=== PATIENT | male | born 1950 | race Caucasian/White ===

== ENCOUNTER 2018-10-09 04:32 | Inpatient (IN) | payer MEDICARE, MEDICAID ==
[2018-10-09 05:23] LABS: HEMATOCRIT 40.3 % (42.0-52.0); HEMOGLOBIN 14.2 g/dl (13.5-17.5); MEAN CORPUSCULAR HEMOGLOBIN 31.4 pg (27.0-33.0); MEAN CORPUSCULAR HGB CONC 35.2 g/dl (32.0-36.5); MEAN CORPUSCULAR VOLUME 89.2 fl (80.0-96.0); PLATELET COUNT, AUTOMATED 234 10^3/uL (150-450); RED BLOOD COUNT 4.52 10^6/uL (4.30-6.10); RED CELL DISTRIBUTION WIDTH 12.3 % (11.5-14.5); WHITE BLOOD COUNT 9.6 10^3/uL (4.0-10.0)
[2018-10-09 05:45] LABS: AMPHETAMINES LEVEL URINE NEGATIVE (NEGATIVE); BARBITURATES URINE NEGATIVE (NEGATIVE); BENZODIAZEPINES URINE NEGATIVE (NEGATIVE); CANNABINOIDS URINE NEGATIVE (NEGATIVE); COCAINE METABOLITE URINE NEGATIVE (NEGATIVE); METHADONE URINE NEGATIVE (NEGATIVE); OPIATES URINE NEGATIVE (NEGATIVE); PHENCYCLIDINE URINE NEGATIVE (NEGATIVE)
[2018-10-09 06:05] LABS: ALBUMIN 3.9 GM/DL (3.2-5.2); ALKALINE PHOSPHATASE 39 U/L (45-117); ALT/SGPT 43 U/L (12-78); ANION GAP 8 MEQ/L (8-16); AST/SGOT 55 U/L (7-37); BILIRUBIN,DIRECT 0.3 MG/DL (0.0-0.2); BILIRUBIN,TOTAL 0.9 MG/DL (0.2-1.0); BLOOD UREA NITROGEN 15 MG/DL (7-18); CALCIUM LEVEL 8.5 MG/DL (8.8-10.2); CARBON DIOXIDE LEVEL 24 MEQ/L (21-32); CHLORIDE LEVEL 96 MEQ/L (98-107); CREATININE FOR GFR 0.87 MG/DL (0.70-1.30); ETHYL ALCOHOL (ETHANOL) < 0.003 % (0.000-0.010); GLOMERULAR FILTRATION RATE > 60.0 (>49); GLUCOSE, FASTING 102 MG/DL (70-100); SALICYLATE LEVEL < 1.7 MG/DL (5.0-30.0); SODIUM LEVEL 128 MEQ/L (136-145); TOTAL PROTEIN 6.9 GM/DL (6.4-8.2)
[2018-10-09 06:06] LABS: ACETAMINOPHEN LEVEL < 2.0 UG/ML (10.0-30.0)
[2018-10-09] MEDS ORDERED: MOM 30ML SUSPENSION UDC PO (06:45)
[2018-10-09] MEDS ORDERED: MAALOX 30 ML SUSP *UDC PO (06:45)
[2018-10-09] MEDS ORDERED: traZODone 50 MG TAB PO (06:45)
[2018-10-09] MEDS ORDERED: ACETAMINOPHEN TAB 650MG DOSE (2X325MG) PO (06:45)
[2018-10-09] MEDS: LORazepam 2 MG/ML VIAL (J2060) IM (08:30)
[2018-10-09] MEDS: diphenhydrAMINE INJ 50MG/ML VIAL (J1200) IM (08:30)
[2018-10-09] MEDS: HALOPERIDOL 5 MG/ML VIAL (J1630) IM (08:31)
[2018-10-09 11:18] LABS: MAGNESIUM LEVEL 2.2 MG/DL (1.8-2.4)
[2018-10-09 11:55] LABS: HEPATITIS B SURFACE ANTIGEN NEGATIVE (NEGATIVE)
[2018-10-09 12:23] LABS: HEPATITIS B CORE ANTIBODY IGM NEGATIVE (NEGATIVE)
[2018-10-09 12:24] LABS: HEPATITIS A ANTIBODY IGM NEGATIVE (NEGATIVE)
[2018-10-09 13:13] LABS: HEPATITIS C VIRUS ABY INDEX 1.8 INDEX (<0.8)
[2018-10-09] MEDS: ASPIRIN 325 MG TAB PO (17:12)
[2018-10-09] MEDS: METOPROLOL TART 25 MG TABLET PO (17:14)
[2018-10-09] MEDS: OLANZapine 5 MG TAB PO (20:44)
[2018-10-09] MEDS: QUEtiapine FUMARATE 100 MG TAB PO (20:45)
[2018-10-10 07:38] LABS: ALBUMIN 3.4 GM/DL (3.2-5.2); ALBUMIN/GLOBULIN RATIO 1.13 (1.00-1.93); ALKALINE PHOSPHATASE 36 U/L (45-117); ALT/SGPT 41 U/L (12-78); ANION GAP 9 MEQ/L (8-16); AST/SGOT 46 U/L (7-37); BILIRUBIN,TOTAL 0.9 MG/DL (0.2-1.0); BLOOD UREA NITROGEN 9 MG/DL (7-18); CALCIUM LEVEL 7.8 MG/DL (8.8-10.2); CARBON DIOXIDE LEVEL 23 MEQ/L (21-32); CHLORIDE LEVEL 93 MEQ/L (98-107); CREATININE FOR GFR 0.73 MG/DL (0.70-1.30); GLOMERULAR FILTRATION RATE > 60.0 (>49); GLUCOSE, FASTING 107 MG/DL (70-100); POTASSIUM SERUM 4.5 MEQ/L (3.5-5.1); SODIUM LEVEL 125 MEQ/L (136-145); TOTAL PROTEIN 6.4 GM/DL (6.4-8.2)
[2018-10-10 07:56] LABS: OSMOLALITY SERUM 257 MOSM/KG (280-301)
[2018-10-10] MEDS: ASPIRIN 325 MG TAB PO (08:06)
[2018-10-10] MEDS: METOPROLOL TART 25 MG TABLET PO (08:06)
[2018-10-10] MEDS: QUEtiapine FUMARATE 100 MG TAB PO ×3 (08:06→21:10)
[2018-10-10 08:38] LABS: KETONE, URINE AUTO RFX NEGATIVE (NEGATIVE); LEUKOCYTE ESTERASE UR AUTO RFX NEGATIVE (NEGATIVE); NITRITE, URINE AUTO RFX NEGATIVE (NEGATIVE); RBC, URINE AUTO RFX 0 /HPF (0-3); SPECIFIC GRAVITY UR AUTO RFX 1.006 (1.002-1.035); SQUAM EPITHELIAL CELL UR AURFX 0 /HPF (0-6); WBC, URINE AUTO RFX 0 /HPF (0-3)
[2018-10-10 08:38] LABS: OSMOLALITY URINE 253 MOSM/KG (500-800)
[2018-10-10 08:56] LABS: SODIUM,RANDOM URINE < 10 MEQ/L
[2018-10-11 07:32] LABS: ALBUMIN 3.6 GM/DL (3.2-5.2); ALBUMIN/GLOBULIN RATIO 1.13 (1.00-1.93); ALKALINE PHOSPHATASE 39 U/L (45-117); ALT/SGPT 46 U/L (12-78); ANION GAP 9 MEQ/L (8-16); AST/SGOT 45 U/L (7-37); BILIRUBIN,TOTAL 0.7 MG/DL (0.2-1.0); BLOOD UREA NITROGEN 10 MG/DL (7-18); CALCIUM LEVEL 8.2 MG/DL (8.8-10.2); CARBON DIOXIDE LEVEL 25 MEQ/L (21-32); CHLORIDE LEVEL 101 MEQ/L (98-107); CREATININE FOR GFR 0.82 MG/DL (0.70-1.30); GLOMERULAR FILTRATION RATE > 60.0 (>49); GLUCOSE, FASTING 107 MG/DL (70-100); POTASSIUM SERUM 4.6 MEQ/L (3.5-5.1); SODIUM LEVEL 135 MEQ/L (136-145); TOTAL PROTEIN 6.8 GM/DL (6.4-8.2)
[2018-10-11] MEDS: ASPIRIN 325 MG TAB PO (09:21)
[2018-10-11] MEDS: QUEtiapine FUMARATE 100 MG TAB PO (09:21)
[2018-10-11] MEDS: METOPROLOL TART 25 MG TABLET PO (09:22)
[2018-10-11] MEDS: QUEtiapine FUMARATE 25 MG TAB PO (15:00)
[2018-10-11] MEDS: QUEtiapine FUMARATE 200 MG TAB PO (20:15)
[2018-10-12 07:15] LABS: ALBUMIN 3.7 GM/DL (3.2-5.2); ALBUMIN/GLOBULIN RATIO 1.23 (1.00-1.93); ALKALINE PHOSPHATASE 40 U/L (45-117); ALT/SGPT 45 U/L (12-78); ANION GAP 6 MEQ/L (8-16); AST/SGOT 37 U/L (7-37); BILIRUBIN,TOTAL 0.7 MG/DL (0.2-1.0); BLOOD UREA NITROGEN 11 MG/DL (7-18); CALCIUM LEVEL 8.5 MG/DL (8.8-10.2); CARBON DIOXIDE LEVEL 29 MEQ/L (21-32); CHLORIDE LEVEL 102 MEQ/L (98-107); CREATININE FOR GFR 0.97 MG/DL (0.70-1.30); GLOMERULAR FILTRATION RATE > 60.0 (>49); GLUCOSE, FASTING 103 MG/DL (70-100); POTASSIUM SERUM 4.4 MEQ/L (3.5-5.1); SODIUM LEVEL 137 MEQ/L (136-145); TOTAL PROTEIN 6.7 GM/DL (6.4-8.2)
[2018-10-12] MEDS: QUEtiapine FUMARATE 100 MG TAB PO (09:00)
[2018-10-12] MEDS: ASPIRIN 325 MG TAB PO (09:05)
[2018-10-12] MEDS: METOPROLOL TART 25 MG TABLET PO (09:05)
[2018-10-12] MEDS: risperiDONE 3 MG TAB PO ×2 (14:34→20:36)
[2018-10-12] MEDS ORDERED: risperiDONE 3 MG TAB PO (21:00)
[2018-10-13] MEDS: ASPIRIN 325 MG TAB PO (08:25)
[2018-10-13] MEDS: risperiDONE 3 MG TAB PO (08:25)
[2018-10-13] MEDS: METOPROLOL TART 25 MG TABLET PO (08:25)
[2018-10-13] MEDS: risperiDONE 1 MG TAB PO (20:14)
[2018-10-13] MEDS: risperiDONE 0.5 MG TAB PO (20:14)
[2018-10-14 00:06] LABS: HCV RNA NAA QUALITATIVE Negative (Negative)
[2018-10-14] MEDS: METOPROLOL TART 25 MG TABLET PO (08:21)
[2018-10-14] MEDS: ASPIRIN 325 MG TAB PO (08:21)
[2018-10-14] MEDS: risperiDONE 0.5 MG TAB PO (20:25)
[2018-10-14] MEDS: risperiDONE 1 MG TAB PO (20:25)
[2018-10-15] MEDS: METOPROLOL TART 25 MG TABLET PO (06:59)
[2018-10-15] MEDS: ASPIRIN 325 MG TAB PO (09:42)
[2018-10-15] MEDS: risperiDONE 0.5 MG TAB PO (19:46)
[2018-10-15] MEDS: risperiDONE 1 MG TAB PO (19:46)
[2018-10-15] MEDS: amLODIPine 5 MG TAB PO (19:46)
[2018-10-16] MEDS: METOPROLOL TART 25 MG TABLET PO (09:23)
[2018-10-16] MEDS: amLODIPine 5 MG TAB PO (09:23)
[2018-10-16] MEDS: ASPIRIN 325 MG TAB PO (09:23)
[2018-10-16] MEDS: risperiDONE 0.5 MG TAB PO ×2 (12:25→21:53)
[2018-10-16] MEDS: risperiDONE 1 MG TAB PO (21:53)
[2018-10-17] MEDS: METOPROLOL TART 25 MG TABLET PO (08:05)
[2018-10-17] MEDS: ASPIRIN 325 MG TAB PO (08:05)
[2018-10-17] MEDS: amLODIPine 5 MG TAB PO (08:05)
[2018-10-17] MEDS: risperiDONE 0.5 MG TAB PO (21:53)
[2018-10-17] MEDS: risperiDONE 1 MG TAB PO (21:53)
[2018-10-18] MEDS: amLODIPine 5 MG TAB PO (08:24)
[2018-10-18] MEDS: METOPROLOL TART 25 MG TABLET PO (08:25)
[2018-10-18] MEDS: ASPIRIN 325 MG TAB PO (08:25)
[2018-10-18] MEDS: risperiDONE 0.5 MG TAB PO (21:58)
[2018-10-18] MEDS: risperiDONE 1 MG TAB PO (21:59)
[2018-10-19] MEDS: METOPROLOL TART 25 MG TABLET PO (08:37)
[2018-10-19] MEDS: amLODIPine 5 MG TAB PO (08:37)
[2018-10-19] MEDS: ASPIRIN 325 MG TAB PO (08:37)
== END 2018-10-19 11:00 | disposition home or self-care (01) | DRG 885 ==
LOC: M ED 04:32 → M ED INP 06:45 → M PSY 08:15
PROVIDERS: Psychiatry & Neurology Psychiatry
DX: F31.9 Bipolar disorder, unspecified (principal); E87.1 Hypo-osmolality and hyponatremia; F41.9 Anxiety disorder, unspecified; I10 Essential (primary) hypertension; Z79.899 Other long term (current) drug therapy; Z88.8 Allergy status to other drugs, medicaments and biological substances

== ENCOUNTER 2019-07-07 15:16 | Inpatient (IN) | payer MEDICARE ==
[~2019-07-07] VITALS: Ht 177.8 cm; Wt 114.4 kg
[~2019-07-07 15:16] MED LIST: ASPI325T57 PO; ASPI32ECTA PO; ATIV1TAB2; BACI500O8 TOP; BACIPOW8 XX; DEPA250T2 PO; DEPA500T2; HYDR25TA6; INVE3TAB2; INVE6TAB3; LOPR50TA PO; LORA2TAB; METO1TAB87 PO; RISP0.5T21 PO; RISP2TAB3 PO; RISP3TAB20 PO; RISP4TAB33 PO; TRAZ50TA; ZYPR1TAB4; cogentin PO; prolixin PO
[2019-07-07 16:54] LABS: HEMATOCRIT 39.8 % (42.0-52.0); HEMOGLOBIN 13.8 g/dl (13.5-17.5); MEAN CORPUSCULAR HGB CONC 34.7 g/dl (32.0-36.5); MEAN CORPUSCULAR VOLUME 89.4 fl (80.0-96.0); PLATELET COUNT, AUTOMATED 262 10^3/uL (150-450); RED BLOOD COUNT 4.45 10^6/uL (4.30-6.10); WHITE BLOOD COUNT 8.3 10^3/uL (4.0-10.0)
[2019-07-07 17:15] LABS: AMPHETAMINES LEVEL URINE NEGATIVE (NEGATIVE); BARBITURATES URINE NEGATIVE (NEGATIVE); BENZODIAZEPINES URINE NEGATIVE (NEGATIVE); CANNABINOIDS URINE NEGATIVE (NEGATIVE); COCAINE METABOLITE URINE NEGATIVE (NEGATIVE); METHADONE URINE NEGATIVE (NEGATIVE); OPIATES URINE NEGATIVE (NEGATIVE); PHENCYCLIDINE URINE NEGATIVE (NEGATIVE)
[2019-07-07 17:28] LABS: ACETAMINOPHEN LEVEL < 2.0 UG/ML (10.0-30.0); ALBUMIN 4.1 GM/DL (3.2-5.2); ALT/SGPT 46 U/L (12-78); BILIRUBIN,DIRECT 0.2 MG/DL (0.0-0.2); BILIRUBIN,TOTAL 0.8 MG/DL (0.2-1.0); BLOOD UREA NITROGEN 11 MG/DL (7-18); CARBON DIOXIDE LEVEL 22 MEQ/L (21-32); CHLORIDE LEVEL 101 MEQ/L (98-107); CREATININE FOR GFR 0.79 MG/DL (0.70-1.30); ETHYL ALCOHOL (ETHANOL) < 0.003 % (0.000-0.010); GLOMERULAR FILTRATION RATE > 60.0 (>49); GLUCOSE, FASTING 97 MG/DL (70-100); POTASSIUM SERUM 4.2 MEQ/L (3.5-5.1); SALICYLATE LEVEL < 1.7 MG/DL (5.0-30.0); SODIUM LEVEL 133 MEQ/L (136-145); TOTAL PROTEIN 6.8 GM/DL (6.4-8.2)
[2019-07-07] MEDS ORDERED: RISP1TAB42 PO (18:20)
[2019-07-07] MEDS ORDERED: MAALOX 30 ML SUSP *UDC PO PRN (20:15)
[2019-07-07] MEDS ORDERED: ACETAMINOPHEN TAB 650MG DOSE (2X325MG) PO PRN (20:15)
[2019-07-07] MEDS ORDERED: traZODone 50 MG TAB PO PRN (20:15)
[2019-07-07] MEDS ORDERED: MOM 30ML SUSPENSION UDC PO PRN (20:15)
[2019-07-07] MEDS ORDERED: risperiDONE 2 MG TAB PO SCH (21:00)
[2019-07-07] MEDS ORDERED: risperiDONE 1 MG TAB PO SCH (21:00)
[2019-07-07] MEDS: ASPIRIN 325 MG TAB PO SCH (21:14)
[2019-07-07] MEDS: METOPROLOL TART 25 MG TABLET PO SCH (21:18)
[2019-07-07 22:24] VITALS: BP 139/75
[2019-07-08 06:43] VITALS: BP 144/80
--- NOTE | 2019-07-08 08:13 | ECGEPIP ---
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
--- NOTE | 2019-07-08 09:57 | MHHPEPDOC ---
General Date Of Admission: Jul 07, 2019 Legal Status: 9.39 Chief Complaint "I'm sticking with a girl from the rehabilitation from the civil war." History of Present Illness HISTORY OF THE PRESENT ILLNESS: Patient is a 68 -year-old , male, who was brought to the ED on 07/07/19 by police. The police reported they stopped the patient at a traffic stop for erratic driving. During the police interview, the patient stated " I have a loaded gun and I'm going to shoot the cats in the neighborhood." While en-route to [facility], the patient stated "I'm going to blow up all these cars." In the ED the patient stated, "I need more salt and water, I also rotate taking Benadryl and Unisom for sleep." He reported he was at the hospital for blood work, and acted bizarre during his ED interview. The patient reported he had not slept in weeks due to "Too much work and not enough sleep." He reported he was taking his medication (risperidone) regularly. The patient has a history of bipolar disorder with psychotic features. He appeared psychotic and was a poor historian in the ED. 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 The patient had paranoid ideations, and delusions that appeared to be grandiose. He denied SI, but reported, "If I'm tasked to kill, I will." Patient is a poor historian and difficult to assess due to acute psychosis Psychiatric Review of Systems Depression (2 or more weeks): insomnia/hypersomnia, difficulty concentrating Ediwge (4 or more days of): irritable/elevated mood, expansive mood, grandiosity, decreased need for sleep, flight of ideas, distractibility, engages in risky behavior Psychosis: delusions, paranoia, disorganization PTSD: denies Anxiety: situational anxiety, stressor related anxiety, denies Anxiety/ 6 months or more of: restlessness, keyed up, difficulty concentrating, irritability Past Psychiatric History Previous Psychiatric Diagnosis: Bipolar Disorder Type 1 Previous Psychiatric Admissions: [facility], last d/c 10/19/18; According to previous records, he has been admitted to rehab programs for alcohol use disorder and was reportedly clean for 12+ years Suicide Attempts: unknown at this time, nothing reported in previous records Psychiatric Follow-up: unknown at this time, nothing reported in previous records Psychiatric medications: Risperidone 25mg, trazodone 50mg, according to prior records he has also been on Depakote and Invega in the past. Past Medical History Medical Problems HTN, Cardiac history per chart review Head Injury: Yes (fell off a wagon) Seizures: No Hospitalizations: No Surgeries: No Family Medical/Psychiatric HX Medical Problems Unable to assess due to acute psychosis, previous records do not report any fam chon history Psychiatric Disorders: No Addiction: No Suicide Attemps/Completions: No Addiction History denies Social History Unable to assess due to psychotic Childhood: unknown. Abuse/Trauma: unable to assess Current Living Situation: lives alone. Education: unable to assess Employment: unemployed at previous visit on disability Social Support: brother lives nearby. Legal: As per prior notes, one DWI and assault charges in the past. Marital: . Mental Status Examination General Appearance: unkempt, disheveled, appears stated age, hospital scubs/clothing Build: overweight Demeanor: preoccupied (patient is singing, and talking towards the ceiling) Eye Contact: poor Activity: average, agitated (mildly), anxious Behavior: cooperative, restless, delarious Speech: clear, spontaneous Mood: irritable, elevated, hypomanic Mood difficult to assess due to acute psychosis, Patient continued to sing and ramble about "fighting the war" and "staying away from poppy" Affect: disorganized Thought Process: incoherent, loose, flight of ideas Thought Content (Delusions): grandiose, paranoia, delusions Thought Content (Other): obsessional, ideas of reference, internal-stimuli, appears paranoid, unable to elaborate (difficult to assess due to acute psychosis) Thought Content (Aggressive): aggressive (assess) (spoke a lot about fighting war) Perception (Hallucinations): other (difficult to assess due to acute psychosis) Perception (Other): other (difficult to assess due to acute psychosis) Cognition (Impairment of): unable to assess (difficult to assess due to acute psychosis) Cognition(Intelligence Est.): average Oriented: Awake, Alert Insight: poor Judgment: Poor Psychosis: Associations, Abstract Thinking, Psychotic Perceptions Diagnoses Bipolar Disorder Type 1, MRE mixed edwige and psychosis A-FIB/CHADSVASC A-FIB History Current/History of A-Fib/PAF?: No Current PO Anticoag Therapy: No Treatment Treatment ordered: NONE Reason Anticoagulant not given: Not indicated/[id number] Assessment Patient was seen today and when asked what brought him here, he reported "I'm sticking with a girl from the rehabilitation from the civil war." and, "I gotta stay away from the [employer] sed, I've been fighting the war so god damn long." When asked if he knows how he got here to the hospital he stated, "yes, [employer] in 1979, [employer]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 Agreeable to invega as he states he's taken it before and it helped. Will plan for invega sustenna prior d/c for med compliance. Initial Treatment Plan 1. Patient was admitted on a 9.39 status. 2. Complete history was obtained. 3. With patients permission, family will be contacted and database will be expanded. 4. Patients medication regimen will be reviewed and changed accordingly. 5. Patient will be provided with protected environment. 6. Patient will be treated with individual, group, and milieu therapies. 7. Patient will receive supportive psych-education. 8. Discharge planning will commence immediately. 9. Outpatient follow-up treatment will be strongly recommended. 10. The initial treatment plan will focus initially on: * Depression. * Risk for suicide. 11. invega 3mg bid, haldol 10mg q4prn anxiety/agitation ESTIMATED LENGTH OF STAY: 7-10 DAYS. TIME SPENT COUNSELING AND COORDINATING INITIAL CARE: 60 minutes. Vital Signs Vital Signs Date Time Temp Pulse Resp B/P (MAP) Pulse Ox O2 Delivery O2 Flow Rate FiO2 07/08/19 06:43 97.7 74 18 144/80 (101) 07/07/19 22:24 98 07/07/19 15:46 Room Air Laboratory Data 24H Labs Laboratory Tests 2 07/07/19 16:35: Nucleated Red Blood Cells % (auto) 0.0, Urine Color YELLOW, Urine Appearance CLEAR, Urine pH 7.0, Urine Specific [place] 1.008, Urine Protein NEGATIVE, Urine Glucose (UA) NEGATIVE, Urine Ketones TRACEH, Urine Blood NEGATIVE, Urine Nitrite NEGATIVE, Urine Bilirubin NEGATIVE, Urine Urobilinogen 0.2, Urine Leukocyte Esterase NEGATIVE, Urine WBC (Auto) 0, Urine RBC (Auto) 1, Urine Hyaline Casts (Auto) 0, Urine Bacteria (Auto) NEGATIVE, Urine Squamous Epithelial Cells 0, Urine Sperm (Auto) , Anion Gap 10, Glomerular Filtration Rate > 60.0, Calcium Level 9.0, Aspartate Amino Transf (AST/SGOT) 35, Alanine Aminotransferase (ALT/S GPT) 46, Alkaline Phosphatase 42L, Total Bilirubin 0.8, Direct Bilirubin 0.2, Total Protein 6.8, Albumin 4.1, Albumin/Globulin Ratio 1.52, Thyroid Stimulating Hormone (TSH) 1.470, Salicylates Level < 1.7L, Urine Amphetamines Screen NEGATIVE, Urine Benzodiazepines Screen NEGATIVE, Urine Opiates Screen NEGATIVE, Urine Methadone Screen NEGATIVE, Acetaminophen Level < 2.0L, Urine Barbiturates Screen NEGATIVE, Urine Phencyclidine Screen NEGATIVE, Urine Cocaine Metabolite Screen NEGATIVE, Urine Cannabinoids Screen NEGATIVE, Ethyl Alcohol Level < 0.003 CBC/BMP Laboratory Tests 07/07/19 16:35 Red Blood Count 4.45, Mean Corpuscular Volume 89.4, Mean Corpuscular Hemoglobin 31.0, Mean Corpuscular Hemoglobin Concent 34.7, Red Cell Distribution Width 12.3 Medications Scheduled Aspirin (Aspirin) 325 Mg Tab, 325 MG PO QHS, (Reported) Metoprolol Tartrate (Metoprolol Tartrate) 25 Mg Tab, 25 MG PO QHS, (Reported) Risperidone (Risperidone) 2 Mg Tab, 2 MG PO QHS, (Reported) Risperidone (Risperdal) 1 Mg Tablet, 1 MG PO QHS, (Reported) Allergies Coded Allergies: No Known Drug Allergies (Verified Allergy, Unknown, 07/07/19) haloperidol (Verified Adverse Reaction, Severe, REPORTED UNSPECIFIED SEVERE SIDE EFFECTS, 07/07/19) risperidone (Verified Adverse Reaction, Intermediate, GYNECOMASTIA, 07/07/19) CORNELIA WORLEY DO Jul 08, 2019 9:57 am
[2019-07-08] MEDS ORDERED: HALOPERIDOL 10 MG TAB PO SCH (11:45)
[2019-07-08] MEDS ORDERED: OLANZapine ORAL DISINTEGRATING TAB 5MG PO PRN (12:30)
[2019-07-08] MEDS: PALIPERIDONE 3 MG ER TAB (INVEGA) PO SCH ×2 (12:38→20:43)
[2019-07-08 18:00] VITALS: BP 158/80
--- NOTE | 2019-07-08 19:09 | HPEPDOC ---
General Date of Admission Jul 07, 2019 at 20:04 Date of Service: Jul 08, 2019 Chief Complaint The patient is a 68-year-old male admitted with a reason for visit of Psychosis Not Otherwise Specified. Source: Patient, Old records Exam Limitations: Other (psychosis) Timing/Duration: Unsure Severity: Severe Associated Symptoms: Unobtainable History of Present Illness This is 68-year-old male admitted to the inpatient mental health unit for acute psychosis. He has flight of ideas and talks nonstop. I am not able to obtain any discernible history. Home Medications Scheduled Aspirin (Aspirin) 325 Mg Tab, 325 MG PO QHS, (Reported) Metoprolol Tartrate (Metoprolol Tartrate) 25 Mg Tab, 25 MG PO QHS, (Reported) Risperidone (Risperidone) 2 Mg Tab, 2 MG PO QHS, (Reported) Risperidone (Risperdal) 1 Mg Tablet, 1 MG PO QHS, (Reported) Allergies Coded Allergies: haloperidol (Verified Adverse Reaction, Severe, REPORTED UNSPECIFIED SEVERE SIDE EFFECTS, 07/07/19) risperidone (Verified Adverse Reaction, Intermediate, GYNECOMASTIA, 07/07/19) Past Medical History Medical History Patient makes vague reference to having some form of cardiac disease for which he is on metoprolol Surgical History Patient denies surgical history Family History Significant Family History: No pertinent family hx Social History * Smoker: Denies Alcohol: sober (patient states he is sober) Drugs: other (unknown) Psychosocial History: Loose associations A-FIB/CHADSVASC A-FIB History Current/History of A-Fib/PAF?: No Current PO Anticoag Therapy: No Review of Systems Other systems 10 system review is otherwise unobtainable from the patient as he is actively psychotic with flight of ideas and delusions. Physical Examination General Exam: Positive: Cooperative, No Acute Distress Eye Exam: Positive: PERRLA, Conjunctiva & lids normal ENT Exam: Positive: Atraumatic, Mucous membr. moist/pink, Nares Patent Neck Exam: Positive: Supple; Negative: JVD, thyromegaly Chest Exam: Positive: Clear to auscultation, Normal air movement Heart Exam: Positive: Rate Normal, Regular Rhythm, Normal S1, Normal S2; Negative: Murmurs, Rubs Abdomen Exam: Positive: Normal bowel sounds, Soft; Negative: Tenderness, Hepatospenomegaly Extremity Exam: Positive: Normal pulses; Negative: Clubbing, Cyanosis, Edema Psych Exam: Positive: Other (patient exhibits psychosis) Vital Signs Vital Signs Date Time Temp Pulse Resp B/P (MAP) Pulse Ox O2 Delivery O2 Flow Rate FiO2 07/08/19 14:29 Room Air 07/08/19 06:43 97.7 74 18 144/80 (101) 07/07/19 22:24 98 Assessment/Plan This is a 68-year-old male admitted to the inpatient mental health unit for acute psychosis. He is cooperative with exam. Content of interview is full of delusions and flight of ideas. Patient does not give any pertinent information about himself. He is otherwise medically stable. We will sign off for now. If any acute medical concerns arise, please do not hesitate to recontact us. Plan / VTE VTE Prophylaxis Ordered?: No VTE Exclusion Mechanical Proph: Low Risk for VTE VTE Exclusion Pharmacological: At Low Risk for VTE Plan Diet: Continue Current Activity: Continue Current Medications: Other Med: (antipsychotics as appropriate) Anticipated Discharge: Psych DANNY DUNN MD Jul 08, 2019 19:09
[2019-07-08] MEDS: METOPROLOL TART 25 MG TABLET PO SCH (20:42)
[2019-07-08] MEDS: ASPIRIN 325 MG TAB PO SCH (20:42)
[2019-07-09 06:34] VITALS: BP 137/93
[2019-07-09] MEDS: PALIPERIDONE 3 MG ER TAB (INVEGA) PO SCH ×2 (09:58→21:34)
--- NOTE | 2019-07-09 10:05 | MHIPNPDOC ---
[facility] Progress Note Progress Note DATE OF SERVICE: 07/09/19 HISTORY: Patient is a 68 -year-old , male, who was brought to the ED on 07/07/19 by police. The police reported they stopped the patient at a traffic stop for erratic driving. During the police interview, the patient stated " I have a loaded gun and I'm going to shoot the cats in the neighborhood." While en-route to [facility], the patient stated "I'm going to blow up all these cars." In the ED the patient stated, "I need more salt and water, I also rotate taking Benadryl and Unisom for sleep." He reported he was at the hospital for blood work, and acted bizarre during his ED interview. The patient reported he had not slept in weeks due to "Too much work and not enough sleep." He reported he was taking his medication (risperidone) regularly. The patient has a history of bipolar disorder with psychotic features. He appeared psychotic and was a poor historian in the ED. 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 The patient had paranoid ideations, and delusions that appeared to be grandiose. He denied SI, but reported, "If I'm tasked to kill, I will." VITAL SIGNS: See below. NEW TEST RESULTS: See below. CURRENT MEDICATIONS: See below. MENTAL STATUS EXAMINATION: General Appearance: unkempt, disheveled, appears stated age, hospital scrubs/clothing Build: overweight Demeanor: hostile, mistrustful Eye Contact: average Activity: average, agitated, anxious Behavior: cooperative, restless, delirious Speech: clear, spontaneous Mood: irritable, elevated, hypomanic Mood "good, I felt pretty good today." Affect: disorganized, incongruent Thought Process: incoherent, loose, flight of ideas Thought Content (Delusions): grandiose, paranoia, delusions Thought Content (Other): obsessional, ideas of reference, internal-stimuli, appears paranoid, associative (told me I look like a paint drink that's back on a garbage can in his garage at home) Thought Content (Aggressive): aggressive (assess) (easily agitated while discussing his wishes to leave here and go home) Perception (Hallucinations): other (difficult to assess due to agitation) Perception (Other): other (difficult to assess due to agitation) Cognition (Impairment of): none reported Cognition(Intelligence Est.): average Oriented: Awake, Alert, oriented Insight: poor Judgment: Poor Psychosis: Associations, Abstract Thinking, Psychotic Perceptions DIAGNOSES: 1. Bipolar Disorder Type 1, MRE mixed edwige and psychosis ASSESSMENT: Patient was seen today and reports he is feeling "good" today, and he ate a big breakfast and took his medications. "I've got a girlfriend, I'm working things out with at the time." He reports he called her earlier this morning and "things are okay." He reports he hasn't had any injections yet, he "just took a pill." He states his girlfriend might come by on Friday to visit him. He reports he was seeing doctor Sonia who had him on the risperidone, but he hasn't seen him in a while and reports he was released by this doctor on 4mg risperidone a day. He then goes on to talk about flying saucers around his house that he has been "seeing stuff since I was a kid." When asked how he got here to the hospital he said it was "the nice residential real estate sales manager down by [place]," and he reports they put guns on him. He states "I've had guns all my life, I have guns, I've been hunting woodchucks since I was 6 years old." He t alks about how the "cats are going wild, killing all the birds, and turning into mountain lions." He expresses his frustrations with being here, and states "I just wants to be left alone in my house." He reports he was on his way to a trapping convention when he was picked up by police and brought here. He became very agitated while discussing being "forced to stay here in this mental institution." He states, "just give me my shot and let me go home." Will plan for Invega Shabbir prior d/c for med compliance, patient is agreeable to this plan. MANAGEMENT PLAN: continue plan with polly espinosa prior d/c for med compliance 1. invega 3mg bid 2. haldol 10mg q4prn anxiety/agitation TIME SPENT: 30 minutes. Vital Signs Vital Signs Date Time Temp Pulse Resp B/P (MAP) Pulse Ox O2 Delivery O2 Flow Rate FiO2 07/09/19 06:34 97.9 85 14 137/93 (108) 07/08/19 14:29 Room Air 07/07/19 22:24 98 Current Medications Current Medications Medications (Trade) Dose Ordered Sig/Chiqui Route PRN Reason Start Time Stop Time Status Last Admin Dose Admin Acetaminophen (Tylenol Tab) 650 mg Q6HP PRN PO HEADACHE or DISCOMFORT 07/07/19 20:15 Al Hydrox/Mg Hydrox/Simethicone (Mylanta) 30 ml Q4HP PRN PO HEARTBURN/INDIGESTION 07/07/19 20:15 Aspirin (Aspirin) 325 mg QHS PO 07/07/19 21:00 07/08/19 20:42 Haloperidol (Haldol) 10 mg Q4HP PO 07/08/19 11:45 UNV Home Med (Med Rec Complete!) ASDIRECTED XX 07/07/19 18:30 07/07/19 18:30 DC Magnesium Hydroxide (Milk Of Magnesia) 30 ml DAILYPRN PRN PO CONSTIPATION 07/07/19 20:15 Metoprolol Tartrate (Lopressor) 25 mg QHS PO 07/07/19 21:00 07/08/19 20:42 Miscellaneous (Unresolved Clarification Entry) SEE LABEL COMMENTS DAILY XX 07/08/19 09:00 07/08/19 12:52 DC Olanzapine (ZyPREXA ZYDIS) 10 mg Q4HP PRN PO ANXIETY/AGITATION 07/08/19 12:30 Paliperidone (Invega) 3 mg QAM PO 07/08/19 09:00 07/09/19 09:58 Paliperidone (Invega) 3 mg QHS PO 07/08/19 21:00 Risperidone (RisperDAL) 1 mg QHS PO 07/07/19 21:00 07/08/19 11:33 DC 07/07/19 21:14 Risperidone (RisperDAL) 2 mg QHS PO 07/07/19 21:00 07/08/19 11:33 DC 07/07/19 21:17 Trazodone HCl (Desyrel) 50 mg QHSP PRN PO INSOMNIA 07/07/19 20:15 Allergies Coded Allergies: haloperidol (Verified Adverse Reaction, Severe, REPORTED UNSPECIFIED SEVERE SIDE EFFECTS, 07/07/19) risperidone (Verified Adverse Reaction, Intermediate, GYNECOMASTIA, 07/07/19) CORNELIA WORLEY DO Jul 09, 2019 10:05 am
[2019-07-09 18:00] VITALS: BP 152/86
[2019-07-09] MEDS: METOPROLOL TART 25 MG TABLET PO SCH (21:34)
[2019-07-09] MEDS: ASPIRIN 325 MG TAB PO SCH (21:34)
[2019-07-10 06:39] VITALS: BP 150/80
[2019-07-10] MEDS: PALIPERIDONE 3 MG ER TAB (INVEGA) PO SCH ×2 (08:33→22:16)
[2019-07-10 16:18] VITALS: BP 164/88
[2019-07-10] MEDS: METOPROLOL TART 25 MG TABLET PO SCH (22:15)
[2019-07-10] MEDS: ASPIRIN 325 MG TAB PO SCH (22:16)
[2019-07-11 06:44] VITALS: BP 165/88
[2019-07-11] MEDS: PALIPERIDONE 3 MG ER TAB (INVEGA) PO SCH ×2 (08:52→21:20)
[2019-07-11 16:02] VITALS: BP 158/87
[2019-07-11] MEDS: ASPIRIN 325 MG TAB PO SCH (21:19)
[2019-07-11] MEDS: METOPROLOL TART 25 MG TABLET PO SCH (21:19)
[2019-07-12 06:37] VITALS: BP 130/80
[2019-07-12] MEDS: PALIPERIDONE 3 MG ER TAB (INVEGA) PO SCH ×2 (08:41→20:57)
--- NOTE | 2019-07-12 09:31 | MHIPNPDOC ---
[facility] Progress Note Progress Note DATE OF SERVICE: 07/12/19 HISTORY: Patient is a 68 -year-old , male, who was brought to the ED on 07/07/19 by police. The police reported they stopped the patient at a traffic stop for erratic driving. During the police interview, the patient stated " I have a loaded gun and I'm going to shoot the cats in the neighborhood." While en-route to [facility], the patient stated "I'm going to blow up all these cars." In the ED the patient stated, "I need more salt and water, I also rotate taking Benadryl and Unisom for sleep." He reported he was at the hospital for blood work, and acted bizarre during his ED interview. The patient reported he had not slept in weeks due to "Too much work and not enough sleep." He reported he was taking his medication (risperidone) regularly. The patient has a history of bipolar disorder with psychotic features. He appeared psychotic and was a poor historian in the ED. He reported working too much to "solve the corruption in this world" and has been "trying to stop people from attacking the 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 The patient had paranoid ideations, and delusions that appeared to be grandiose. He denied SI, but reported, "If I'm tasked to kill, I will." VITAL SIGNS: See below. NEW TEST RESULTS: See below. CURRENT MEDICATIONS: See below. MENTAL STATUS EXAMINATION: General Appearance: well groomed, appears stated age, hospital scrubs/clothing Build: overweight Demeanor: average Eye Contact: average Activity: average, calm Behavior: cooperative, pleasant Speech: clear, reg/rate,rhythm,volume, non-spontaneous Mood "good" Affect: appropriate, congruent Thought Process: logical/linear, slow, intact Thought Content (Delusions): denies SI/HI/AVH Thought Content (Other): guarded, coherent (not very talkative today) Thought Content (Aggressive): non reported Perception (Hallucinations): none reported (does state that his "dreams" are "okay" today Perception (Other): none reported Cognition (Impairment of): none reported Cognition(Intelligence Est.): average Oriented: Awake, Alert, oriented times three Insight: fair Judgment: fair Psychosis: denies DIAGNOSES: 1. Bipolar Disorder Type 1, MRE mixed edwige and psychosis ASSESSMENT: Patient was seen today and reports he is feeling "good" today, and he got a lot of sleep and having "okay dreams". He reports his appetite has been good and he has been eating a lot. He reports his brother mayur came to visit over the weekend which went well. He denies any concerns with his current medications. He is feeling ready to go home and spend time with his family. He is very pleasant today and is not easily agitated as he was on Friday. Patient denies SI/HI/AVH. Patient feels safe here. Will plan for Invega Sustenna prior d/c for med compliance, patient is agreeable to this plan. MANAGEMENT PLAN: continue plan with invega sustenna prior d/c for med compliance 1. invega 3mg bid 2. haldol 10mg q4prn anxiety/agitation TIME SPENT: 30 minutes. Vital Signs Vital Signs Date Time Temp Pulse Resp B/P (MAP) Pulse Ox O2 Delivery O2 Flow Rate FiO2 07/12/19 06:37 97.0 68 14 130/80 (97) 07/09/19 11:40 Room Air 07/07/19 22:24 98 Current Medications Current Medications Medications (Trade) Dose Ordered Sig/Chiqui Route PRN Reason Start Time Stop Time Status Last Admin Dose Admin Acetaminophen (Tylenol Tab) 650 mg Q6HP PRN PO HEADACHE or DISCOMFORT 07/07/19 20:15 Al Hydrox/Mg Hydrox/Simethicone (Mylanta) 30 ml Q4HP PRN PO HEARTBURN/INDIGESTION 07/07/19 20:15 Aspirin (Aspirin) 325 mg QHS PO 07/07/19 21:00 07/11/19 21:19 Haloperidol (Haldol) 10 mg Q4HP PO 07/08/19 11:45 UNV Home Med (Med Rec Complete!) ASDIRECTED XX 07/07/19 18:30 07/07/19 18:30 DC Magnesium Hydroxide (Milk Of Magnesia) 30 ml DAILYPRN PRN PO CONSTIPATION 07/07/19 20:15 Metoprolol Tartrate (Lopressor) 25 mg QHS PO 07/07/19 21:00 07/11/19 21:19 Miscellaneous (Unresolved Clarification Entry) SEE LABEL COMMENTS DAILY XX 07/08/19 09:00 07/08/19 12:52 DC Olanzapine (ZyPREXA ZYDIS) 10 mg Q4HP PRN PO ANXIETY/AGITATION 07/08/19 12:30 Paliperidone (Invega) 3 mg QAM PO 07/08/19 09:00 07/12/19 08:41 Paliperidone (Invega) 3 mg QHS PO 07/08/19 21:00 07/11/19 21:20 Risperidone (RisperDAL) 1 mg QHS PO 07/07/19 21:00 07/08/19 11:33 DC 07/07/19 21:14 Risperidone (RisperDAL) 2 mg QHS PO 07/07/19 21:00 07/08/19 11:33 DC 07/07/19 21:17 Trazodone HCl (Desyrel) 50 mg QHSP PRN PO INSOMNIA 07/07/19 20:15 Allergies Coded Allergies: haloperidol (Verified Adverse Reaction, Severe, REPORTED UNSPECIFIED SEVERE SIDE EFFECTS, 07/07/19) risperidone (Verified Adverse Reaction, Intermediate, GYNECOMASTIA, 07/07/19) ESPINOZA KOHLER MD Jul 12, 2019 09:31
[2019-07-12] MEDS: METOPROLOL TART 25 MG TABLET PO SCH (16:02)
[2019-07-12 16:43] VITALS: BP 180/96
--- NOTE | 2019-07-12 18:24 | MHIPN ---
DATE: 07/11/2019 SUBJECTIVE: The patient is still delusional and has flight of ideas. He reports there is a drug war going on in this world. Some people have marijuana and some people have cocaine. He changes the topic. Reports that his ex- did not allow him to take sleeping pills. He talks about [place] and then 07/07. However, he is calmer than yesterday, cooeprative. OBJECTIVE: He is a 68-year-old male brought to the emergency department by police. He was stopped at the traffic stop as he was driving erratic. He made some delusional statements and was admitted to the hospital. He is a poor historian. He reports his sleep and appetite are good. MENTAL STATUS EXAMINATION: Casually dressed, cooperative, made good eye contact. Psychomotor activity is normal. Speech: Rate and volume are good. Thought process: Flight of ideas, somewhat circumstantial at times. Thought content: Denies suicidal or homicidal ideas. Continues to be delusional. Insight and judgment are limited. Memory: Remote memory is intact. Recent memory and immediate recall 2/3. REVIEW OF SYSTEMS: Denied chest pain or palpitations. Denied abdominal pain or dysuria. Denied cough or shortness of breath. Denied tingling, numbness, and dizziness. Gait is normal. MEDICATIONS: Paliperidone 3 mg twice daily. His EKG, the QTc interval is 409. DIAGNOSES: 1. Bipolar disorder, most recent episode mixed. 2. Rule out mild neurocognitive disorder. PLAN: Continue current medication. Continue individual, group and milieu therapy. Coordination of care was done with the nursing staff.
--- NOTE | 2019-07-12 20:28 | MHIPN ---
DATE: 07/10/2019 SUBJECTIVE: He reports that everything is okay. Afterwards he started speaking tangentially about his girlfriend. OBJECTIVE: 68-year-old male who was brought to the emergency room because while driving he was very erratic and they found him disorganized and he was brought to the hospital. The patient has a history of bipolar disorder. He was on Risperidone. Compliance with Risperidone is questionable. He is showing some improvement; however, he continues to be rambling about his girlfriend. His sleep and appetite are good. MENTAL STATUS EXAMINATION: Tall, well built male, cooperative. Made good eye contact. Psychomotor activity is normal. Mood is anxious. Affect is appropriate to the mood. Speech is hyperverbal, tangential. Denied any auditory hallucinations. Insight and judgment are limited. Denied any suicidal or homicidal ideas. REVIEW OF SYSTEMS: Denied chest pain or palpitations. Denied numbness, tingling, dizziness. Denied abdominal pain. Denied dysuria. Denied cough or shortness of breath. Gait is normal. VITAL SIGNS: Temperature 96.9, pulse 67, blood pressure 150/80, respirations 16. MEDICATIONS: - Invega 3 mg at night and 2 mg in the morning. DIAGNOSES: 1. Bipolar 1 disorder, most recent episode manic with psychosis. PLAN: Continue current medications. Continue individual, group and milieu therapy. Estimated length of stay is 4 to 5 days.
[2019-07-12] MEDS: ASPIRIN 325 MG TAB PO SCH (20:57)
[2019-07-13 07:07] VITALS: BP 169/86
--- NOTE | 2019-07-13 08:47 | MHIPNPDOC ---
[facility] Progress Note Progress Note DATE OF SERVICE: 07/13/19 HISTORY: Patient is a 68 -year-old , male, who was brought to the ED on 07/07/19 by police. The police reported they stopped the patient at a traffic stop for erratic driving. During the police interview, the patient stated " I have a loaded gun and I'm going to shoot the cats in the neighborhood." While en-route to [facility], the patient stated "I'm going to blow up all these cars." In the ED the patient stated, "I need more salt and water, I also rotate taking Benadryl and Unisom for sleep." He reported he was at the hospital for blood work, and acted bizarre during his ED interview. The patient reported he had not slept in weeks due to "Too much work and not enough sleep." He reported he was taking his medication (risperidone) regularly. The patient has a history of bipolar disorder with psychotic features. He appeared psychotic and was a poor historian in the ED. 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 The patient had paranoid ideations, and delusions that appeared to be grandiose. He denied SI, but reported, "If I'm tasked to kill, I will." VITAL SIGNS: See below. NEW TEST RESULTS: See below. CURRENT MEDICATIONS: See below. MENTAL STATUS EXAMINATION: General Appearance: unkempt, disheveled, appears stated age, hospital scrubs/clothing Build: overweight Demeanor: cooperative Eye Contact: average Activity: average Behavior: cooperative Speech: clear, spontaneous Mood: less elevated, hypomanic Mood "not bad." Affect: less hypomanic Thought Process: disorganized, loose, flight of ideas Thought Content (Delusions): grandiose, paranoia, delusions Thought Content (Other): less obsessional, ideas of reference, internal- stimuli, appears paranoid, associative Thought Content (Aggressive): none reported Perception (Hallucinations): walks milieu appearing to respond to some internal stimulie Perception (Other): none reported Cognition (Impairment of): none reported Cognition(Intelligence Est.): average Oriented: Awake, Alert, oriented Insight: poor Judgment: Poor Psychosis: Associations, Abstract Thinking, Psychotic Perceptions DIAGNOSES: 1. Bipolar Disorder Type 1, MRE mixed yesika and psychosis ASSESSMENT: Patient was seen today and reports he is feeling "not bad" today. He is complaint on his medications states he's tolerating his invega well and feels it's beneficial. States he did 25 jumping jacks this morning. Continues to be disorganized and hyperverbal jumping from topic to topic. Yesika and psychosis are less though. States he feels like his thoughts are more clear as "I'm not saying to wrong thing to people so often". He is frequently walking to milieu appear to respond to some form of internal stimulit at times. Denies SI/HI. Will plan for Invega Sustenna prior d/c for med compliance, patient is agreeable to this plan. MANAGEMENT PLAN: continue plan with invega sustenna prior d/c for med compliance. increase invega to 6mg bid. 1. invega 6mg bid 2. haldol 10mg q4prn anxiety/agitation TIME SPENT: 30 minutes. Vital Signs Vital Signs Date Time Temp Pulse Resp B/P (MAP) Pulse Ox O2 Delivery O2 Flow Rate FiO2 07/13/19 07:07 98.2 83 14 169/86 (113) 07/09/19 11:40 Room Air 07/07/19 22:24 98 Current Medications Current Medications Medications (Trade) Dose Ordered Sig/Chiqui Route PRN Reason Start Time Stop Time Status Last Admin Dose Admin Acetaminophen (Tylenol Tab) 650 mg Q6HP PRN PO HEADACHE or DISCOMFORT 07/07/19 20:15 Al Hydrox/Mg Hydrox/Simethicone (Mylanta) 30 ml Q4HP PRN PO HEARTBURN/INDIGESTION 07/07/19 20:15 Aspirin (Aspirin) 325 mg QHS PO 07/07/19 21:00 07/12/19 20:57 Haloperidol (Haldol) 10 mg Q4HP PO 07/08/19 11:45 UNV Home Med (Med Rec Complete!) ASDIRECTED XX 07/07/19 18:30 07/07/19 18:30 DC Magnesium Hydroxide (Milk Of Magnesia) 30 ml DAILYPRN PRN PO CONSTIPATION 07/07/19 20:15 Metoprolol Tartrate (Lopressor) 25 mg BID PO 07/12/19 15:35 07/12/19 16:02 Metoprolol Tartrate (Lopressor) 25 mg QHS PO 07/07/19 21:00 07/12/19 15:34 DC 07/11/19 21:19 Miscellaneous (Unresolved Clarification Entry) SEE LABEL COMMENTS DAILY XX 07/08/19 09:00 07/08/19 12:52 DC Olanzapine (ZyPREXA ZYDIS) 10 mg Q4HP PRN PO ANXIETY/AGITATION 07/08/19 12:30 Paliperidone (Invega) 3 mg QAM PO 07/08/19 09:00 07/12/19 08:41 Paliperidone (Invega) 3 mg QHS PO 07/08/19 21:00 07/12/19 20:57 Risperidone (RisperDAL) 1 mg QHS PO 07/07/19 21:00 07/08/19 11:33 DC 07/07/19 21:14 Risperidone (RisperDAL) 2 mg QHS PO 07/07/19 21:00 07/08/19 11:33 DC 07/07/19 21:17 Trazodone HCl (Desyrel) 50 mg QHSP PRN PO INSOMNIA 07/07/19 20:15 Allergies Coded Allergies: haloperidol (Verified Adverse Reaction, Severe, REPORTED UNSPECIFIED SEVERE SIDE EFFECTS, 07/07/19) risperidone (Verified Adverse Reaction, Intermediate, GYNECOMASTIA, 07/07/19) CORNELIA WORLEY DO Jul 13, 2019 8:47 am
[2019-07-13] MEDS ORDERED: PALIPERIDONE 3 MG ER TAB (INVEGA) PO ONE (09:00)
[2019-07-13] MEDS: PALIPERIDONE 6 MG ER TAB (INVEGA) PO SCH ×2 (09:13→20:21)
[2019-07-13] MEDS: METOPROLOL TART 25 MG TABLET PO SCH ×2 (09:14→20:22)
[2019-07-13 16:46] VITALS: BP 148/84
[2019-07-13] MEDS: ASPIRIN 325 MG TAB PO SCH (20:21)
[2019-07-14 06:33] VITALS: BP 149/87
[2019-07-14] MEDS: PALIPERIDONE 6 MG ER TAB (INVEGA) PO SCH ×2 (09:17→21:36)
[2019-07-14] MEDS: METOPROLOL TART 25 MG TABLET PO SCH ×2 (09:18→21:36)
--- NOTE | 2019-07-14 09:52 | MHIPNPDOC ---
[facility] Progress Note Progress Note DATE OF SERVICE: 07/14/19 HISTORY: Patient is a 68 -year-old , male, who was brought to the ED on 07/07/19 by police. The police reported they stopped the patient at a traffic stop for erratic driving. During the police interview, the patient stated " I have a loaded gun and I'm going to shoot the cats in the neighborhood." While en-route to [facility], the patient stated "I'm going to blow up all these cars." In the ED the patient stated, "I need more salt and water, I also rotate taking Benadryl and Unisom for sleep." He reported he was at the hospital for blood work, and acted bizarre during his ED interview. The patient reported he had not slept in weeks due to "Too much work and not enough sleep." He reported he was taking his medication (risperidone) regularly. The patient has a history of bipolar disorder with psychotic features. He appeared psychotic and was a poor historian in the ED. 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 The patient had paranoid ideations, and delusions that appeared to be grandiose. He denied SI, but reported, "If I'm tasked to kill, I will." VITAL SIGNS: See below. NEW TEST RESULTS: See below. CURRENT MEDICATIONS: See below. MENTAL STATUS EXAMINATION: General Appearance: unkempt, disheveled, appears stated age, hospital scrubs/clothing Build: overweight Demeanor: cooperative Eye Contact: average Activity: average Behavior: cooperative Speech: clear, spontaneous Mood: less elevated, hypomanic Mood "alright." Affect: less hypomanic Thought Process: less disorganized, loose, flight of ideas Thought Content (Delusions): less grandiose, paranoia, delusions Thought Content (Other): less obsessional, ideas of reference, internal- stimuli, appears paranoid, associative Thought Content (Aggressive): none reported Perception (Hallucinations): walks milieu appearing to respond to some internal stimuli Perception (Other): none reported Cognition (Impairment of): none reported Cognition(Intelligence Est.): average Oriented: Awake, Alert, oriented Insight: poor Judgment: Poor Psychosis: Associations, Abstract Thinking, Psychotic Perceptions DIAGNOSES: 1. Bipolar Disorder Type 1, MRE mixed yesika and psychosis ASSESSMENT: Patient was seen today and reports he is feeling "alright" today. Per treatment team pt yesika and psychosis appears to be improving with treatment and medications that he's compliant. States he's tolerating his invega well and feels it's beneficial. Continues to be disorganized and hyperverbal jumping from topic to topic. Yesika and psychosis are less though. He continues is frequently walking to milieu appear to respond to some form of internal stimuli at times. Denies SI/HI. Will plan for Invega Sustenna invega sustenna 234mg im today and 156mg on Friday for med compliance, patient is agreeable to this plan. MANAGEMENT PLAN: continue plan with invega sustenna 234mg im today and 156mg on Friday. 1. invega 6mg bid 2. haldol 10mg q4prn anxiety/agitation 3. invega sustenna 234mg im x1 today 4. invega sustenna 156mg im x1 Friday TIME SPENT: 30 minutes. Vital Signs Vital Signs Date Time Temp Pulse Resp B/P (MAP) Pulse Ox O2 Delivery O2 Flow Rate FiO2 07/14/19 09:18 80 128/72 07/14/19 06:33 98.2 14 07/09/19 11:40 Room Air Current Medications Current Medications Medications (Trade) Dose Ordered Sig/Chiqui Route PRN Reason Start Time Stop Time Status Last Admin Dose Admin Acetaminophen (Tylenol Tab) 650 mg Q6HP PRN PO HEADACHE or DISCOMFORT 07/07/19 20:15 Al Hydrox/Mg Hydrox/Simethicone (Mylanta) 30 ml Q4HP PRN PO HEARTBURN/INDIGESTION 07/07/19 20:15 Aspirin (Aspirin) 325 mg QHS PO 07/07/19 21:00 07/13/19 20:21 Haloperidol (Haldol) 10 mg Q4HP PO 07/08/19 11:45 UNV Home Med (Med Rec Complete!) ASDIRECTED XX 07/07/19 18:30 07/07/19 18:30 DC Magnesium Hydroxide (Milk Of Magnesia) 30 ml DAILYPRN PRN PO CONSTIPATION 07/07/19 20:15 Metoprolol Tartrate (Lopressor) 25 mg BID PO 07/12/19 15:35 07/14/19 09:18 Metoprolol Tartrate (Lopressor) 25 mg QHS PO 07/07/19 21:00 07/12/19 15:34 DC 07/11/19 21:19 Miscellaneous (Unresolved Clarification Entry) SEE LABEL COMMENTS DAILY XX 07/08/19 09:00 07/08/19 12:52 DC Olanzapine (ZyPREXA ZYDIS) 10 mg Q4HP PRN PO ANXIETY/AGITATION 07/08/19 12:30 Paliperidone (Invega) 3 mg QAM PO 07/08/19 09:00 07/13/19 08:48 DC 07/12/19 08:41 Paliperidone (Invega) 3 mg QHS PO 07/08/19 21:00 07/13/19 08:48 DC 07/12/19 20:57 Paliperidone (Invega) 6 mg BID PO 07/13/19 09:00 07/14/19 09:17 Risperidone (RisperDAL) 1 mg QHS PO 07/07/19 21:00 07/08/19 11:33 DC 07/07/19 21:14 Risperidone (RisperDAL) 2 mg QHS PO 07/07/19 21:00 07/08/19 11:33 DC 07/07/19 21:17 Trazodone HCl (Desyrel) 50 mg QHSP PRN PO INSOMNIA 07/07/19 20:15 Allergies Coded Allergies: haloperidol (Verified Adverse Reaction, Severe, REPORTED UNSPECIFIED SEVERE SIDE EFFECTS, 07/07/19) risperidone (Verified Adverse Reaction, Intermediate, GYNECOMASTIA, 07/07/19) CORNELIA WORLEY DO Jul 14, 2019 9:52 am
[2019-07-14] MEDS ORDERED: PALIPERIDONE PALMITATE 234MG/1.5ML INJ (INVEGA)(J2426)(FREE PSY INPT ONLY) IM ONE (11:00)
[2019-07-14 16:51] VITALS: BP 140/89
[2019-07-14] MEDS: ASPIRIN 325 MG TAB PO SCH (21:36)
[2019-07-15 06:33] VITALS: BP 145/88
[2019-07-15] MEDS: METOPROLOL TART 25 MG TABLET PO SCH ×2 (09:03→21:53)
[2019-07-15] MEDS: PALIPERIDONE 6 MG ER TAB (INVEGA) PO SCH ×2 (09:03→21:52)
--- NOTE | 2019-07-15 11:00 | MHIPNPDOC ---
[facility] Progress Note Progress Note DATE OF SERVICE: 07/15/19 HISTORY:Patient is a 68 -year-old , male, who was brought to the ED on 07/07/19 by police. The police reported they stopped the patient at a traffic stop for erratic driving. During the police interview, the patient stated " I have a loaded gun and I'm going to shoot the cats in the neighborhood." While en-route to [facility], the patient stated "I'm going to blow up all these cars." In the ED the patient stated, "I need more salt and water, I also rotate taking Benadryl and Unisom for sleep." He reported he was at the hospital for blood work, and acted bizarre during his ED interview. The patient reported he had not slept in weeks due to "Too much work and not enough sleep." He reported he was taking his medication (risperidone) regularly. The patient has a history of bipolar disorder with psychotic features. He appeared psychotic and was a poor historian in the ED. 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 The patient had paranoid ideations, and delusions that appeared to be grandiose. He denied SI, but reported, "If I'm tasked to kill, I will." VITAL SIGNS: See below. NEW TEST RESULTS: See below. CURRENT MEDICATIONS: See below. MENTAL STATUS EXAMINATION: General Appearance: clean, appears stated age, hospital scrubs/clothing Build: overweight Demeanor: cooperative Eye Contact: average Activity: average Behavior: cooperative Speech: clear, spontaneous Mood: mildly elevated Mood "alright." Affect: more appropriate, mild elevation Thought Process: more linear and logical Thought Content (Delusions): moderately improved grandiose, paranoia, delusions Thought Content (Other): moderatly improved obsessional, ideas of reference, internal-stimuli, appears paranoid, associative Thought Content (Aggressive): none reported Perception (Hallucinations): none reported, has improved pacing and responding stimuli to minimal Perception (Other): none reported Cognition (Impairment of): none reported Cognition(Intelligence Est.): average Oriented: Awake, Alert, oriented Insight: poor Judgment: Poor Psychosis: Associations, Abstract Thinking, Psychotic Perceptions DIAGNOSES: 1. Bipolar Disorder Type 1, MRE mixed yesika and psychosis ASSESSMENT: Patient was seen today and reports he is feeling "good" today. Has the bible on his night stand and read me a passage he thought related to him and his mental health and did very well. States he's able to concentrate well l to ready when I asked. Pt is more linear and logical during conversation when seen today and not endorsing psychosis when seen. States though than even though he lives near [place] he wants to come to [place] for his outpatient med management and treatment b/c "I like the congressman here more." States he's tolerating his invega well and feels it's beneficial. Has greatly improved disorganized and hyperverbal speech as thoughts more clean and speech more regular rate. Yesika and psychosis are improving daily. Denies SI/HI. Tolerated Invega Sustenna invega sustenna 234mg im given yesterday and is schedule for invega sustenna 156mg im on Friday for med compliance, patient is agreeable to this plan. MANAGEMENT PLAN: continue plan with invega sustenna 156mg im on Friday. 1. invega 6mg bid 2. haldol 10mg q4prn anxiety/agitation 3. invega sustenna 234mg im x1 today 4. invega sustenna 156mg im x1 Friday TIME SPENT: 30 minutes. Vital Signs Vital Signs Date Time Temp Pulse Resp B/P (MAP) Pulse Ox O2 Delivery O2 Flow Rate FiO2 07/15/19 09:03 81 145/88 07/15/19 06:33 97.7 16 07/09/19 11:40 Room Air Current Medications Current Medications Medications (Trade) Dose Ordered Sig/Chiqui Route PRN Reason Start Time Stop Time Status Last Admin Dose Admin Acetaminophen (Tylenol Tab) 650 mg Q6HP PRN PO HEADACHE or DISCOMFORT 07/07/19 20:15 Al Hydrox/Mg Hydrox/Simethicone (Mylanta) 30 ml Q4HP PRN PO HEARTBURN/INDIGESTION 07/07/19 20:15 Aspirin (Aspirin) 325 mg QHS PO 07/07/19 21:00 07/14/19 21:36 Haloperidol (Haldol) 10 mg Q4HP PO 07/08/19 11:45 UNV Home Med (Med Rec Complete!) ASDIRECTED XX 07/07/19 18:30 07/07/19 18:30 DC Magnesium Hydroxide (Milk Of Magnesia) 30 ml DAILYPRN PRN PO CONSTIPATION 07/07/19 20:15 Metoprolol Tartrate (Lopressor) 25 mg BID PO 07/12/19 15:35 07/15/19 09:03 Metoprolol Tartrate (Lopressor) 25 mg QHS PO 07/07/19 21:00 07/12/19 15:34 DC 07/11/19 21:19 Miscellaneous (Unresolved Clarification Entry) SEE LABEL COMMENTS DAILY XX 07/08/19 09:00 07/08/19 12:52 DC Olanzapine (ZyPREXA ZYDIS) 10 mg Q4HP PRN PO ANXIETY/AGITATION 07/08/19 12:30 Paliperidone (Invega) 3 mg QAM PO 07/08/19 09:00 07/13/19 08:48 DC 07/12/19 08:41 Paliperidone (Invega) 3 mg QHS PO 07/08/19 21:00 07/13/19 08:48 DC 07/12/19 20:57 Paliperidone (Invega) 6 mg BID PO 07/13/19 09:00 07/15/19 09:03 Risperidone (RisperDAL) 1 mg QHS PO 07/07/19 21:00 07/08/19 11:33 DC 07/07/19 21:14 Risperidone (RisperDAL) 2 mg QHS PO 07/07/19 21:00 07/08/19 11:33 DC 07/07/19 21:17 Trazodone HCl (Desyrel) 50 mg QHSP PRN PO INSOMNIA 07/07/19 20:15 Allergies Coded Allergies: haloperidol (Verified Adverse Reaction, Severe, REPORTED UNSPECIFIED SEVERE SIDE EFFECTS, 07/07/19) risperidone (Verified Adverse Reaction, Intermediate, GYNECOMASTIA, 07/07/19) CORNELIA WORLEY DO Jul 15, 2019 11:00 am
[2019-07-15 18:00] VITALS: BP 165/84
[2019-07-15] MEDS: ASPIRIN 325 MG TAB PO SCH (21:52)
[2019-07-16 06:26] VITALS: BP 136/96
[2019-07-16] MEDS: PALIPERIDONE 6 MG ER TAB (INVEGA) PO SCH ×2 (09:13→21:36)
[2019-07-16] MEDS: METOPROLOL TART 25 MG TABLET PO SCH ×2 (09:14→21:41)
--- NOTE | 2019-07-16 10:30 | MHIPNPDOC ---
[facility] Progress Note Progress Note DATE OF SERVICE: 07/16/19 HISTORY: Patient is a 68 -year-old , male, who was brought to the ED on 07/07/19 by police. The police reported they stopped the patient at a traffic stop for erratic driving. During the police interview, the patient stated " I have a loaded gun and I'm going to shoot the cats in the neighborhood." While en-route to [facility], the patient stated "I'm going to blow up all these cars." In the ED the patient stated, "I need more salt and water, I also rotate taking Benadryl and Unisom for sleep." He reported he was at the hospital for blood work, and acted bizarre during his ED interview. The patient reported he had not slept in weeks due to "Too much work and not enough sleep." He reported he was taking his medication (risperidone) regularly. The patient has a history of bipolar disorder with psychotic features. He appeared psychotic and was a poor historian in the ED. 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 The patient had paranoid ideations, and delusions that appeared to be grandiose. He denied SI, but reported, "If I'm tasked to kill, I will." VITAL SIGNS: See below. NEW TEST RESULTS: See below. CURRENT MEDICATIONS: See below. MENTAL STATUS EXAMINATION: General Appearance: clean, appears stated age, hospital scrubs/clothing Build: overweight Demeanor: cooperative Eye Contact: average Activity: average Behavior: cooperative Speech: clear, spontaneous Mood: euthymic mostly and bright Mood "alright." Affect: appropriate, mild elevation Thought Process: more linear and logical Thought Content (Delusions): moderately improved grandiose, delusions Thought Content (Other): moderatly improved ideas of reference, associative Thought Content (Aggressive): none reported Perception (Hallucinations): none reported Perception (Other): none reported Cognition (Impairment of): none reported Cognition(Intelligence Est.): average Oriented: Awake, Alert, oriented x3 Insight: poor Judgment: Poor Psychosis: greatly improving Associations, Abstract Thinking, Psychotic Perceptions DIAGNOSES: 1. Bipolar Disorder Type 1, MRE mixed yesika and psychosis ASSESSMENT: Patient was seen today and reports he is feeling "pretty good" today. He denies any complaints and states he's tolerating his medication, invega, and believes it's very helpful for him, ready for his second dose invega sustenna tomorrow then possible d/c home. States he has supportive brothers who have been visiting him here and will be providing him with aid and support after he's d/c. States he has a great relationship with his brothers. Continues to read his bible occasionally on the unit with good concentration. Thoughts are linear and logical. He is pleasant and cooperative when seen. Has greatly improved disorganized and hyperverbal speech as thoughts more clean and speech more regular rate. Yesika and psychosis are improving daily. Denies SI/HI. Tolerated Invega Sustenna invega sustenna 234mg im given 07/14/19 and is schedule for invega sustenna 156mg im on Friday for med compliance, patient is agreeable to this plan. MANAGEMENT PLAN: continue plan with invega sustenna 156mg im on Friday. 1. invega 6mg bid 2. haldol 10mg q4prn anxiety/agitation 3. invega sustenna 234mg im x1 today 4. invega sustenna 156mg im x1 Friday TIME SPENT: 30 minutes. Vital Signs Vital Signs Date Time Temp Pulse Resp B/P (MAP) Pulse Ox O2 Delivery O2 Flow Rate FiO2 07/16/19 06:26 98.0 85 14 136/96 (109) Current Medications Current Medications Medications (Trade) Dose Ordered Sig/Chiqui Route PRN Reason Start Time Stop Time Status Last Admin Dose Admin Acetaminophen (Tylenol Tab) 650 mg Q6HP PRN PO HEADACHE or DISCOMFORT 07/07/19 20:15 Al Hydrox/Mg Hydrox/Simethicone (Mylanta) 30 ml Q4HP PRN PO HEARTBURN/INDIGESTION 07/07/19 20:15 Aspirin (Aspirin) 325 mg QHS PO 07/07/19 21:00 07/15/19 21:52 Haloperidol (Haldol) 10 mg Q4HP PO 07/08/19 11:45 UNV Home Med (Med Rec Complete!) ASDIRECTED XX 07/07/19 18:30 07/07/19 18:30 DC Magnesium Hydroxide (Milk Of Magnesia) 30 ml DAILYPRN PRN PO CONSTIPATION 07/07/19 20:15 Metoprolol Tartrate (Lopressor) 25 mg BID PO 07/12/19 15:35 07/15/19 21:53 Metoprolol Tartrate (Lopressor) 25 mg QHS PO 07/07/19 21:00 07/12/19 15:34 DC 07/11/19 21:19 Miscellaneous (Unresolved Clarification Entry) SEE LABEL COMMENTS DAILY XX 07/08/19 09:00 07/08/19 12:52 DC Olanzapine (ZyPREXA ZYDIS) 10 mg Q4HP PRN PO ANXIETY/AGITATION 07/08/19 12:30 Paliperidone (Invega) 3 mg QAM PO 07/08/19 09:00 07/13/19 08:48 DC 07/12/19 08:41 Paliperidone (Invega) 3 mg QHS PO 07/08/19 21:00 07/13/19 08:48 DC 07/12/19 20:57 Paliperidone (Invega) 6 mg BID PO 07/13/19 09:00 07/15/19 21:52 Risperidone (RisperDAL) 1 mg QHS PO 07/07/19 21:00 07/08/19 11:33 DC 07/07/19 21:14 Risperidone (RisperDAL) 2 mg QHS PO 07/07/19 21:00 07/08/19 11:33 DC 07/07/19 21:17 Trazodone HCl (Desyrel) 50 mg QHSP PRN PO INSOMNIA 07/07/19 20:15 Allergies Coded Allergies: haloperidol (Verified Adverse Reaction, Severe, REPORTED UNSPECIFIED SEVERE SIDE EFFECTS, 07/07/19) risperidone (Verified Adverse Reaction, Intermediate, GYNECOMASTIA, 07/07/19) CORNELIA WORLEY DO Jul 16, 2019 9:03 am
[2019-07-16 15:50] VITALS: BP 137/78
[2019-07-16] MEDS: ASPIRIN 325 MG TAB PO SCH (21:36)
[2019-07-17 06:20] VITALS: BP 140/82
[2019-07-17] MEDS: METOPROLOL TART 25 MG TABLET PO SCH ×2 (08:29→20:46)
[2019-07-17] MEDS: PALIPERIDONE 6 MG ER TAB (INVEGA) PO SCH ×2 (08:29→20:45)
[2019-07-17] MEDS ORDERED: PALIPERIDONE PALMITATE 156MG/1ML INJ(INVEGA)(J2426 PER 1MG)(INFUS OUTPT) IM ONE (09:00)
[2019-07-17 16:24] VITALS: BP_SYST 137; BP_SYST 147; BP_DIAS 63; BP_DIAS 83
[2019-07-17] MEDS: ASPIRIN 325 MG TAB PO SCH (20:45)
[2019-07-18 06:50] VITALS: BP 139/78
[2019-07-18] MEDS: PALIPERIDONE 6 MG ER TAB (INVEGA) PO SCH ×2 (09:11→20:45)
[2019-07-18] MEDS: METOPROLOL TART 25 MG TABLET PO SCH ×2 (09:12→20:46)
[2019-07-18 16:07] VITALS: BP 113/57
[2019-07-18] MEDS: ASPIRIN 325 MG TAB PO SCH (20:46)
[2019-07-19 06:26] VITALS: BP 140/88
[2019-07-19 08:40] VITALS: BP 130/78
[2019-07-19] MEDS: PALIPERIDONE 6 MG ER TAB (INVEGA) PO SCH (08:40)
[2019-07-19] MEDS: METOPROLOL TART 25 MG TABLET PO SCH (08:40)
[2019-07-19] MEDS ORDERED: INVE234I IM (08:58)
--- NOTE | 2019-07-19 08:59 | MHDSPDOC ---
[facility] Discharge Summary Discharge Summary DATE OF ADMISSION: Jul 07, 2019 at 8:04 pm DATE OF DISCHARGE: Jul 19, 2019 DISCHARGE DIAGNOSES: Bipolar Disorder Type 1, MRE mixed yesika and psychosis REASON FOR ADMISSION:Patient is a 68 -year-old , male, who was brought to the ED on 07/07/19 by police. The police reported they stopped the patient at a traffic stop for erratic driving. During the police interview, the patient stated " I have a loaded gun and I'm going to shoot the cats in the neighborhood." While en-route to [facility], the patient stated "I'm going to blow up all these cars." In the ED the patient stated, "I need more salt and water, I also rotate taking Benadryl and Unisom for sleep." He reported he was at the hospital for blood work, and acted bizarre during his ED interview. The patient reported he had not slept in weeks due to "Too much work and not enough sleep." He reported he was taking his medication (risperidone) regularly. The patient has a history of bipolar disorder with psychotic features. He appeared psychotic and was a poor historian in the ED. 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 The patient had paranoid ideations, and delusions that appeared to be grandiose. He denied SI, but reported, "If I'm tasked to kill, I will." CONSULTANTS INVOLVED:none TREATMENT AND PROGRESS ON THE UNIT : Pt was admitted to [facility], seen for psychiatric assessment and started on invega oral increased to 6mg bid for psychosis with improvement in symptoms and good tolerance so he was given invega sustenna 234mg im x1 then 156mg im x1 3 days later and tolerated both well with continued improvement in psychosis. His oral invega was then discontinued. He was provided trazodone 50mg qhs prn insomnia. Pt found his medications beneficial and tolerated them well. His symptoms of psychosis improved greatly with treatment to his baseline status, no longer responding to internal stimuli, endorsing delusions with linear and logical thought. He was pleasant and cooperative with treatment. He attended groups daily during his stay. His symptoms improved with treatment. On day of discharge he denied depression, anxiety, insomnia, SI/HI, hallucinations, delusions. He was discharged home with his brother with follow-up at outpatient clinic in [place], [place].. He felt safe for discharge. DISCHARGE ASSESSMENT: Patient was seen today and reports he is feeling "good" today. He denies any complaints and states he's tolerating his medication, invega sustenna, and believes it's very helpful for him having tolerated his second 156mg dose over the weekend. States he has supportive brothers who have been visiting him here and will be providing him with aid and support after he's d/c. States he has a great relationship with his brothers. Thoughts are linear and logical. He is pleasant and cooperative when seen. Has is no longer disorganized or hyperverbal and thoughts more clean and speech more regular rate. Yesika and psychosis are improved to no symptoms currently. He denies depression, anxiety, insomnia, SI/HI, hallucinations, delusions. Feels safe to d/c home with his brothers. MENTAL STATUS EXAMINATION ON DISCHARGE: General Appearance: clean, appears stated age, hospital scrubs/clothing Build: overweight Demeanor: cooperative Eye Contact: average Activity: average Behavior: cooperative Speech: clear, spontaneous Mood: euthymic and bright Mood "good" Affect: appropriate, euthymic Thought Process: linear and logical Thought Content (Delusions): none reported Thought Content (Other): none reported Thought Content (Aggressive): none reported Perception (Hallucinations): none reported Perception (Other): none reported Cognition (Impairment of): none reported Cognition(Intelligence Est.): average Oriented: Awake, Alert, oriented x3 Insight: fair-good Judgment: fair-good Psychosis: none reported MEDICATIONS ON DISCHARGE: invega sustenna 234mg im q1mo PLAN/FOLLOWUP ARRANGEMENTS: D/c home with his brother with follow-up at outpatient clinic in [place], [place]. The amount of time spent in the coordination of care for this patient was approximately 30 minutes. Vital Signs/I&Os Vital Signs Date Time Temp Pulse Resp B/P (MAP) Pulse Ox O2 Delivery O2 Flow Rate FiO2 07/19/19 08:40 113 130/78 07/19/19 06:26 97.6 16 Medications Scheduled Aspirin (Aspirin) 325 Mg Tab, 325 MG PO QHS, (Reported) Metoprolol Tartrate (Metoprolol Tartrate) 25 Mg Tab, 25 MG PO QHS, (Reported) Risperidone (Risperidone) 2 Mg Tab, 2 MG PO QHS, (Reported) Risperidone (Risperdal) 1 Mg Tablet, 1 MG PO QHS, (Reported) Allergies Coded Allergies: haloperidol (Verified Adverse Reaction, Severe, REPORTED UNSPECIFIED SEVERE SIDE EFFECTS, 07/07/19) risperidone (Verified Adverse Reaction, Intermediate, GYNECOMASTIA, ) CORNELIA WORLEY DO Jul 19, 2019 8:59 am
== END 2019-07-19 11:50 | disposition home or self-care (01) | DRG 885 ==
LOC: M ED 15:16 → M ED INP 20:04 → M PSY 21:24
PROVIDERS: ADMIT Psychiatry & Neurology Psychiatry; ATTEND Psychiatry & Neurology Psychiatry
DX: F31.2 Bipolar disorder, current episode manic severe with psychotic features (principal); I10 Essential (primary) hypertension; Z88.8 Allergy status to other drugs, medicaments and biological substances; Z79.899 Other long term (current) drug therapy; Z86.79 Personal history of other diseases of the circulatory system